=== PATIENT | female | born 1960 | race American Indian/Alaskan Native ===

== ENCOUNTER 2021-09-02 09:51 | Outpatient (CLI) | payer OTHER ==
[2021-09-08 00:09] LABS: CD4/CD8 Ratio 0.75 (0.86-5.00)
== END 2021-09-02 09:52 | disposition home or self-care (01) ==
LOC: LAB 09:51
PROVIDERS: ATTEND Internal Medicine
DX: Z02.71 Encounter for disability determination (principal); B20 Human immunodeficiency virus [HIV] disease
CPT/HCPCS: 36415; 82024